=== PATIENT | male | born 1940 | race Caucasian/White ===

== ENCOUNTER → 2016-06-10 | Outpatient (CLI) | payer MEDICARE, BC ==
[~2016-06-10] MED LIST: ACETAMINOPHEN PO; ACETAMINOPHEN500 M7 PO; ACIPHEX20 MG PO; ALLEGRA ALLERG180 MG PO; AMLODIPINE BESYL5 MG PO; APRESOLINE PO; ASPIRIN PO; ASPIRIN81 MG PO; BENADRYL IV; BENADRYL PO; BENADRYL25 M3 PO; CLARITIN10 M2 PO; CLONIDINE HCL0.1 MG PO; CLONIDINE PO; CLONIDINE TOP; CO Q-10 100 MG1 EACH PO; CO Q-10 ER100 MG PO; COUMADIN5 MG PO; DAKIN'S MODIF1000 ML EXT; DELTASONE20 MG PO; DIGOX0.25 MG PO; EPIPEN0.3 MG/0.1 IM; FAMOTIDINE PO; FAMOTIDINE20 M1 PO; FLOMAX PO; FLOMAX0.4 M1 PO; FLOMAX0.4 MG PO; FLONASE16 GM; GLUCOSAMIN-CHO1 EACH PO; GLYCOPYRROLATE1 MG PO; HYDRALAZINE HC100 MG PO; HYDROCHLOROTHIA25 MG PO; HYDROCHLOROTHIAZIDE PO; HYZAAR1 TAB 100- PO; LASIX20 MG PO; LORTAB 10-5001 EACH PO; LORTAB 5/500 TA1 TA1 PO; LOSARTAN POTASS50 MG PO; LOSARTAN-HCTZ1 EAC3 PO; LOVENOX120 MG/0.8 SUBQ; LUTEIN20 M1 PO; MAGNESIUM250 M1 PO; MEDI-MECLIZINE25 M1 PO; MEDROL PO; METHYLDOPA PO; METOPROLOL TAR25 MG PO; MONTELUKAST SOD10 MG PO; MUCINEX FAST-M1 EAC9; MULTIVITAMINS1 EAC2 PO; NORCO 10-325 TA1 TAB PO; NORVASC PO; OIL OF OREGAN1500 MG PO; OMEPRAZOLE20 M1 PO; ORAZINC110 MG PO; POTASSIUM GLUCO99 MG PO; PREDNISONE PO; PRILOSEC PO; PRILOSEC20 MG PO; PRILOSEC40 MG; PRILOSEC40 MG PO; PROBIOTIC1 EACH PO; ROBAXIN500 MG PO; ROBINUL1 MG PO; SANTYL15 G1 TP; ST. JOHN'S WOR300 MG PO; SUPER B COMPLEX1 CAP PO; TEKTURNA HCT 301 TA1 PO; TEKTURNA PO; TRILISATE PO; VICODIN 5/500 T1 TAB PO; VITAMIN E400 UNI2 PO; ZANTAC PO; ZOLOFT PO; ZYRTEC PO; ZYRTEC10 M2 PO; ZYVOX600 MG PO
--- NOTE | ~2016-06-10 | CT3 ---
[facility] A Service of [facility] RADIOLOGY TEXT RESULTS PATIENT: BROOKE LOGAN LOCATION: [facility] : 38 UNIT #: [id number] AGE: [address]: Quentin Diane MD SEX: M ORDER DR: [id number] [facility] [address] [place], [place] [address] [id number] O MR#: [id number] Acc #: [id number] NAME: BROOKE LOGAN. : 1940 SEX: M STUDY DATE/TIME: 06/10/2016 12:13 UNIT: [facility] ROOM: STUDY DESCRIPTION: CT Abd and Pelv WWo Cont Attending Physician: Quentin Diane M.D. Referring Physician: Quentin Diane M.D. Ordering Physician: Quentin Diane M.D. Primary Care Physician: Chris Walsh M.D. MEDICAL IMAGING REPORT This report is preliminary unless electronic signature is present EXAM CT abdomen without contrast; CT abdomen and pelvis with contrast. HISTORY Indeterminate renal cyst. Follow-up. Observation for renal mass. PROCEDURE Unenhanced CT of the abdomen. Postcontrast CT of the abdomen and pelvis. Multiphase acquisition through the kidneys and 3-minute delayed imaging through the abdomen. This CT exam was performed with one or more of the following radiation dose reduction techniques: automatic exposure control, adjustment of mA and/or kV according to patient size, and iterative reconstruction. COMPARISON 09/22/2015 FINDINGS ABDOMEN WITHOUT CONTRAST: Included lung bases are clear. No radiodense gallstones or renal calculus. ABDOMEN WITH CONTRAST: Kidneys enhance symmetrically. There are bilateral renal cysts. There is a 1.4-cm proteinaceous or hemorrhagic cyst in the right kidney. No enhancing renal mass. Tiny cyst at the dome of the liver. The spleen, pancreas, and gallbladder are unremarkable. The bowel loops are nondilated. There is a 2.7-cm left adrenal adenoma. PELVIS WITH CONTRAST: Mild prostatomegaly. No aggressive-appearing bone [facility] A Service of [facility] RADIOLOGY TEXT RESULTS PATIENT: BROOKE LOGAN LOCATION: [facility] : 38 UNIT #: [id number] AGE: [address]: Quentin Diane MD SEX: M ORDER DR: lesion. IMPRESSION 1. Bilateral renal cysts, as above. No evidence for an enhancing renal mass. 2. Mild prostatomegaly. 3. Small hepatic cyst. Dictated by... Kike Lewis M.D. THIS IS AN ELECTRONICALLY VERIFIED REPORT Kike Lewsi M.D. at 06/10/2016 4:51 PM NICOLE/jackie TD: 06/10/2016 15:00 JOB #: [id number] MEDICAL IMAGING REPORT Page 1 of 1 COPY
[2016-06-10 12:06] LABS: POC - CREATININE 0.73 mg/dL (0.64-1.27); POC - GFR >60.0 mL/min (>60)
== END | disposition home or self-care (01) ==
LOC: CCAT 11:05
PROVIDERS: Urology
DX: N13.30 Unspecified hydronephrosis (principal); N28.1 Cyst of kidney, acquired; N40.0 Benign prostatic hyperplasia without lower urinary tract symptoms; K76.89 Other specified diseases of liver
CPT/HCPCS: 74178; 82565; Q9967

== ENCOUNTER → 2016-08-23 | Outpatient (CLI) | payer MEDICARE, BC ==
--- NOTE | ~2016-08-23 | MR17 ---
[facility] A Service of [facility] RADIOLOGY TEXT RESULTS PATIENT: BROOKE LOGAN LOCATION: [facility] : 36 UNIT #: [id number] AGE: [address]: Don Madison II, MD SEX: M ORDER DR: [id number] [facility] [address] [place], [place] [address] [id number] O MR#: [id number] Acc #: [id number] NAME: BROOKE LOGAN. : 1940 SEX: M STUDY DATE/TIME: 08/23/2016 16:36 UNIT: [facility] ROOM: STUDY DESCRIPTION: MR Brain WWo Contrast Attending Physician: Don Madison II., M.D. Referring Physician: Don Madison II., M.D. Ordering Physician: Don Madison II., M.D. Primary Care Physician: Chris Walsh M.D. MRI CENTER REPORT This report is preliminary unless electronic signature is present. EXAM MRI of the brain with and without contrast dated 08/23/2016. COMPARISON MRI of the brain with and without contrast dated 02/22/2016. 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 Left-sided hearing loss for 7 years, dizziness for 7 years. 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 TECHNIQUE Multisequence, multiplanar imaging of the brain was obtained with and without contrast. GFR measured greater than 60. 20 mL of MultiHance was administered intravenously. FINDINGS Patient has a known enhancing mass in the region of the left jugular foramen measuring 2.6 x 1.8 x 1.8 cm. The mass measured 2.9 x 1.8 x 2.8 cm on the previous study. The difference in measurement between the two studies is likely related to the slice selection and angle at which the measurements were obtained. Overall volume is relatively stable given the differences in slice selection. The left internal carotid artery is noted along the anterior aspect of this mass and it is relatively stable. Small hyperintense T2 signal lesions are noted in the periventricular and subcortical white matter and the right cerebellar hemisphere. Vascular flow voids of the major cerebral arteries and dural venous sinuses are not completely occluded in these thicker slices. Mild bilateral mucosal thickening is seen. Status post bilateral cataract surgery. Nasal septum is deviated to the right. [facility] A Service of [facility] RADIOLOGY TEXT RESULTS PATIENT: BROOKE LOGAN [facility] : 38 UNIT #: [id number] AGE: [address]: Don Madison II, MD SEX: M ORDER DR: IMPRESSION 1. 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 Given the differences in slice selection it is relatively stable. 2. Scattered hyperintense T2 signal lesions are noted in the brain, likely related to mild chronic microvascular ischemic change or a migraine based on age and statistics. 3. No acute intracranial abnormality. Dictated by... Maximo Tate M.D. THIS IS AN ELECTRONICALLY VERIFIED REPORT Maximo Tate M.D. at 08/25/2016 6:05 PM CPR/tmw TD: 08/24/2016 13:45 JOB #: [id number] MRI CENTER REPORT Page 1 of 1 COPY
[2016-08-23 16:31] LABS: POC - CREATININE 0.74 mg/dL (0.64-1.27); POC - GFR >60.0 mL/min (>60)
== END | disposition home or self-care (01) ==
LOC: CMRI 15:30
PROVIDERS: Psychiatry & Neurology Neurology
DX: D44.7 Neoplasm of uncertain behavior of aortic body and other paraganglia (principal); G93.89 Other specified disorders of brain
CPT/HCPCS: 70553; 82565; A9577